=== PATIENT | female | born 2000 | race Caucasian/White ===

== ENCOUNTER 2020-02-16 10:31 | Emergency (ER) | payer OTHER ==
[2020-02-16] MEDS ORDERED: NORMAL SALINE 1000 ML 1,000 ML IV ONE (10:43)
--- NOTE | 2020-02-16 10:47 | ER Document Report ---
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 Reports pain is 3 out of 5, cramping and constant. this morning she noticed worsening back pain, hematuria, nausea cloudy urine. Last menstrual cycle 02/07/2020, she does take control, but the patch. G0, P0. His only tried Tylenol for emua-hhs-bcknflk meds. Denies any fevers or chills, chest pain, shortness of breath. Denies any history of nephrolithiasis or pyelonephritis. Denies any positive Covid test, she is unsure if she has been on any positive Covid individuals. denies any vaginal bleeding/vaginal discharge. I have greeted and performed a rapid initial assessment of this patient. A comprehensive ED assessment and evaluation of the patient, analysis of test results and completion of the medical decision making process will be conducted by additional ED providers. PHYSICAL EXAMINATION: GENERAL: Well-appearing, well-nourished and in no acute distress. CV: s1, s2 regular LUNGS: No respiratory distress abd: RLQ, suprapubic, LLQ abd pain on palpation. bilateral CVA tenderness on palpation M - Related Data Allergies/Adverse Reactions: Penicillins Allergy (Verified 02/16/20 10:43)
[2020-02-16 11:18] LABS: ABSOLUTE BASOPHILS # (AUTO) 0.1 10^3/uL (0.0-0.2); ABSOLUTE EOSINOPHILS # (AUTO) 0.1 10^3/uL (0.0-0.6); ABSOLUTE LYMPHOCYTES (AUTO) 1.9 10^3/uL (0.5-4.7); ABSOLUTE MONOCYTES (AUTO) 0.5 10^3/uL (0.1-1.4); ABSOLUTE NEUT (AUTO) 8.3 10^3/uL (1.7-8.2); BASOPHILS % (AUTO) 0.5 % (0-2); EOSINOPHILS % (AUTO) 1.3 % (0-6); HEMATOCRIT 36.9 % (36.0-47.0); HEMOGLOBIN 12.4 g/dL (12.0-15.5); LYMPHOCYTES % (AUTO) 17.4 % (13-45); MEAN CORPUSCULAR HEMOGLOBIN 28.9 pg (27.0-33.4); MEAN CORPUSCULAR HGB CONC 33.6 g/dL (32.0-36.0); MEAN CORPUSCULAR VOLUME 86 fl (80-97); MONOCYTES % (AUTO) 4.8 % (3-13); PLATELET COUNT 276 10^3/uL (150-450); RED CELL DISTRIBUTION WIDTH 13.4 % (11.5-14.0); TOTAL CELLS COUNTED % (AUTO) 100 %; WHITE BLOOD COUNT 10.9 10^3/uL (4.0-10.5)
--- NOTE | 2020-02-16 11:18 | ER Document Report ---
ED GI/ - General Chief Complaint: Lower Abdominal Pain Stated Complaint: LOWER BACK PAIN Time Seen by Provider: 02/16/20 10:39 Notes: HPI: 19-year-old female presents today with the onset yesterday of some suprapubic and left flank pain. She states it is "cramping". Intermittent. Nausea without vomiting. Positive dysuria. No fevers. No vaginal discharge or missed menstrual period. No real aggravating relieving factors other than pain with urinating. ROS: See HPI All other review of systems reviewed and otherwise negative Reviewed vital signs and nursing note as charted by RN. PHYSICAL EXAM: CONSTITUTIONAL: Alert and oriented and responds appropriately to questions. Well-appearing; well-nourished HEAD: Normocephalic; atraumatic EYES: PERRL; Conjunctivae clear, sclerae non-icteric ENT: Normal nose; no rhinorrhea; moist mucous membranes; pharynx without lesions noted NECK: Supple without meningismus; non-tender; no cervical lymphadenopathy, no masses CARD: Regular rate and rhythm; no murmurs; symmetric distal pulses RESP: Normal chest excursion without splinting or tachypnea; breath sounds clear and equal bilaterally ABD/GI: Normal bowel sounds; non-distended; soft, minimal tenderness to the suprapubic and left lower quadrant without any rebound or guarding BACK: The back appears normal and is non-tender to palpation; minimal left-sided CVA tenderness without swelling or erythema EXT: Normal ROM in all joints; non-tender to palpation; no edema SKIN: No acute lesions noted NEURO: CN 2-12 intact; 5/5 bilateral upper and lower extremity strength with sensation intact to light touch PSYCH: The patient's mood and manner are appropriate. Grooming and personal hygiene are appropriate. - Related Data Allergies/Adverse Reactions: Penicillins Allergy (Verified 02/16/20 10:43) Home Medications: control Past Medical History - Social History Smoking Status: Never Smoker Chew tobacco use (# tins/day): No Frequency of alcohol use: None Drug Abuse: None Family History: Reviewed & Not Pertinent Patient has homicidal ideation: No Physical Exam - Vital signs Vitals: Temp 98.2 F 02/16/20 10:41 Course - Re-evaluation Re-evalutation: 02/16/20 11:18 Given the above history and physical, patient's young age, we will check test as well as urinalysis and perform a renal colic CT scan if the is negative. Would like to assess for the possibility of an ectopic , urinary tract infection, infected kidney stone or kidney stone without infection, or other acute pathology. 02/16/20 13:25 Labs and urine as recorded. CT scan showed no obvious stones. Patient's pain is improved. She still declines any pain medications. We will perform a pelvic examination and treat the patient with a dose of Rocephin. 02/16/20 14:58 Pelvic examination shows no obvious external or internal lesions. No cervical motion tenderness or adnexal masses or tenderness. Vital signs are stable. Patient's pain is still very controlled. Patient will be discharged home with a course of Keflex and strict return precautions with chlamydia/gonorrhea pending. - Vital Signs Vital signs: Temp Pulse Resp BP Pulse Ox 98.2 F 02/16/20 10:41 - Laboratory Results Result Diagrams: 02/16/20 10:45 02/16/20 10:45 Laboratory Results Interpreted: 02/16/20 02/16/20 02/16/20 10:45 10:45 11:54 WBC 10.9 H Absolute Neuts (auto) 8.3 H Sodium 136.6 L Urine Blood LARGE H Ur Leukocyte Esterase LARGE H Critical Laboratory Results Reviewed: No Critical Results - Radiology Results Critical Radiology Results Reviewed: No Critical Results Discharge - Discharge Clinical Impression: Pelvic cramping, Urine leukocytes Condition: Good Disposition: HOME, SELF-CARE Additional Instructions: Come back immediately for any increased cramping, fevers or vomiting, change in location or quality of pain, or any other acute problems. Please follow-up with urine culture and your primary care physician for reassessment of the urine analysis. Please take the antibiotics as prescribed. Prescriptions: Cephalexin Monohydrate [Keflex 500 mg Capsule] 500 mg PO Q8H 5 Days #21 capsule
[2020-02-16 11:42] LABS: ANION GAP 7 (5-19); BLOOD UREA NITROGEN 11 mg/dL (7-20); CALCIUM 9.5 mg/dL (8.4-10.2); CARBON DIOXIDE 26 mmol/L (22-30); CHLORIDE 104 mmol/L (98-107); GLUCOSE 81 mg/dL (75-110); POTASSIUM 4.1 mmol/L (3.6-5.0)
[2020-02-16 12:52] LABS: APPEARANCE,URINE SLIGHTLY-CLOUDY; BILIRUBIN,URINE NEGATIVE (NEGATIVE); COLOR,URINE STRAW; GLUCOSE, URINE NEGATIVE (NEGATIVE); KETONES,URINE NEGATIVE (NEGATIVE); LEUKOCYTE ESTERASE,URINE LARGE (NEGATIVE); NITRITE,URINE NEGATIVE (NEGATIVE); PROTEIN,URINE NEGATIVE (NEGATIVE); URINE SPECIFIC GRAVITY 1.006; UROBILINOGEN,URINE NEGATIVE mg/dL (<2.0)
--- NOTE | 2020-02-16 13:23 | RADIOLOGY REPORT (SQ) ---
EXAM DESCRIPTION: CT ABD/PELVIS NO ORAL OR IV IMAGES COMPLETED DATE/TIME: 02/16/2020 1:14 pm REASON FOR STUDY: 41; left flank; renal colic COMPARISON: None. TECHNIQUE: CT scan of the abdomen and pelvis performed without intravenous or oral contrast. Images reviewed with lung, soft tissue, and bone windows. Reconstructed coronal and sagittal MPR images revi ewed. All images stored on PACS. All CT scanners at this facility use dose modulation, iterative reconstruction, and/or weight based d osing when appropriate to reduce radiation dose to as low as reasonably achievable (ALARA). [facility]: Dose Right [facility]: CareDose [facility]: Dose Right [facility]: Teradose 4D [facility]: [employer] RADIATION DOSE: CT Rad equipment meets quality standard of care and radiation dose reduction techniq ues were employed. CTDIvol: 2.5 mGy. DLP: 117 mGy-cm.mGy. LIMITATIONS: None. FINDINGS: LOWER CHEST: No significant findings. No nodules or infiltrates. NON-CONTRASTED LIVER, SPLEEN, ADRENALS: Evaluation limited by lack of IV contrast. No identified sign ificant masses. PANCREAS: No masses. No peripancreatic inflammatory changes. GALLBLADDER: No identified stones by CT criteria. No inflammatory changes to suggest cholecystitis. RIGHT KIDNEY AND URETER: No suspicious masses. Assessment limited by lack of IV contrast. No signif icant calcifications. No hydronephrosis or hydroureter. LEFT KIDNEY AND URETER: No suspicious masses. Assessment limited by lack of IV contrast. No signifi cant calcifications. No hydronephrosis or hydroureter. AORTA AND RETROPERITONEUM: No aneurysm. No retroperitoneal masses or adenopathy. BOWEL AND PERITONEAL CAVITY: No obvious masses or inflammatory changes. No free fluid. APPENDIX: Normal. PELVIS, BLADDER, AND ABDOMINAL WALL:No abnormal masses. No free fluid. Bladder normal. BONES: No significant findings. OTHER: No other significant finding. IMPRESSION: NO SIGNIFICANT OR ACUTE PROCESS IN THE ABDOMEN OR PELVIS. COMMENT: Quality ID # [id number]: Final reports with documentation of one or more dose reduction techniques (e.g., Automated exposure control, adjustment of the mA and/or kV according to patient size, use of iterative reconstruction technique) TECHNICAL DOCUMENTATION: JOB ID: [id number] [employer]- All Rights Reserved Reading location - IP/workstation name: [email or web address]
[2020-02-16] MEDS ORDERED: CEFTRIAXONE 1 GM/D5W RTU 1 GM/50 ML RTUPB IV ONE (13:24)
[2020-02-16 14:07] LABS: BACTERIA (WET MOUNT) 3+ BACTERIA SEEN; RBCS (WET MOUNT) RARE RBCS SEEN; T.VAGINALIS (WET MOUNT) NO TRICHOMONAS SEEN; WBCS (WET MOUNT) FEW WBCS SEEN; YEAST (WET MOUNT) NO YEAST SEEN
[2020-02-16 14:08] LABS: EPITHELIALS (WET MOUNT) 3+ EPITHELIALS SEEN
[2020-02-16 15:38] LABS: CHLAM PCR NOT DETECTED (NOT DETECT)
[2020-02-16 15:46] VITALS: BP 133/72
== END 2020-02-16 15:46 | disposition home or self-care (01) ==
LOC: ER 10:31
DX: R10.2 Pelvic and perineal pain (principal); D72.829 Elevated white blood cell count, unspecified; R10.30 Lower abdominal pain, unspecified; R11.0 Nausea; R30.0 Dysuria; Z88.0 Allergy status to penicillin
CPT/HCPCS: 99285; 96361; 96365; 36415; 87086; 87210; 84702; 83690; 85025; 80048; 81001; 87491; 87591; 74176; J7030; J0696